=== PATIENT | female | born 1985 | race Hispanic/Latino ===

== ENCOUNTER 2016-09-01 07:58 | Inpatient (IN) | payer OTHER ==
[~2016-09-01] VITALS: Ht 160 cm; Wt 62.6 kg
[~2016-09-01 07:58] MED LIST: Docusate Sodium PO; FOL1 PO; Hydrocodone/Acetaminophen PO; Ibuprofen PO; PREN1CAP15 PO; VITA-212 PO
[2016-09-01] MEDS ORDERED: Lactated Ringer's 1,000 ML IV PRN (08:13)
[2016-09-01] MEDS ORDERED: Sodium Chloride LOK Flush 10 mL Syringe IVFLUSH PRN (08:15)
[2016-09-01] MEDS ORDERED: Oxytocin 30 Units/500 mL LR 30 UNITS in IV Premix 1 EACH IV PRN ×2 (08:15→11:25)
[2016-09-01] MEDS ORDERED: Carboprost 250 mCg/mL Inj IM PRN ×2 (08:15→11:25)
[2016-09-01] MEDS ORDERED: Ondansetron 2 mg/mL 2 mL Inj IVPUSH PRN ×2 (08:15→09:45)
[2016-09-01] MEDS ORDERED: fentaNYL-PF 50 mCg/mL 2 mL Inj IVPUSH PRN (08:15)
[2016-09-01] MEDS ORDERED: Oxytocin 10 Unit/mL Inj IM PRN ×2 (08:15→11:25)
[2016-09-01] MEDS ORDERED: Hemorrhage Kit, Post Partum XX ONE ×2 (08:15→11:25)
[2016-09-01] MEDS ORDERED: Methylergonovine 0.2 mg/mL Inj IM PRN ×2 (08:15→11:25)
--- NOTE | 2016-09-01 08:46 | PCM.HPOB ---
Subjective Date of Service: September 01, 2016 Referring Provider: Admitting Physician: Tamie Hwang MD Primary Care Physician: Nimisha Hylton MD Attending Physician: Tamie Hwang MD Chief Complaint Contractions History of Present History of Present Illness 31Y at 40w1d , KRUNAL 08/31/16 by first trimester US. presented with C/O contractions. On presentation cervix 4 cm/90%/intact. Last cervical exam at the office 10 days ago was 1 cm. No other complaint. good movements and no loss of fluid and no vaginal bleeding. Past Medical History Obstetrical History: 2000 M, 7lb 3oz 2001 F, 8 lb 2004 M, ~ 7 lb 2013 , M, ~7 lb Denies any intra or complications in previous delivery. 09/2011, 03/2012, 12/2012 SAB Hx of induced AB X1. Medical History: Denies any chronic disease. No H/O Asthma or HTN. Surgical History: None Hx Tobacco Use: No Hx Alcohol Use: No Hx Substance Use: No Past Family History Family History non contributory Review of Systems ROS 10 points ROS is negative except for items in HPI. Allergy Coded Allergies: No Known Allergies (Verified , 06/13/14) Exam Vital Signs Exam FHT 145 minimal-moderate variability, no decelerations no accelerations Contractions Q1-3 min Constitutional: Well-developed HEENT: Atraumatic Lungs: Clear to Auscultation Heart: Regular Rate/Rhythm, Normal S1, Normal S2 Abdomen: Gravid (EFW with brooklyn's maneuver 7 lb, cephalic presentaion by bedside US. ) Extremities: Pulses Palpable x4 Neurological/Psychiatric: Alert, Oriented X3 Additional Information made cervical change no w 6 cm by RN exam. Labs/Diagnostics Maternal Blood Type: O (positive ) Antibody Screen: negative Group B Strep Results: Negative Rubella: Immune (1.87) Additional Information HBsAg Negative PRP Non reactive HIV Non Reactive Pap smear negative 04/2014 Chlamydia Negative Gonorrhea Negative 1 Hour DM Screen 177 , 3 Hrs 1 abn (84, 201, 116, 86) OB Intrapartum Assessment/Plan Assessment 31 Y/O at 40w1d Glucose intolerance dose not meet criteria for GDM Active labor GBS negative Declined epidural initially now desires epidural. Plan: Admit Expectant management. High risk for hemorrhage and monitor for signs of Shoulder dystocia. Blanca Craig MD September 01, 2016 08:46
[2016-09-01 08:58] LABS: Mean Corpuscular Hemoglobin 22.4 pg (27.0-35.0); Mean Corpuscular Volume 72.5 fL (81-100)
[2016-09-01] MEDS ORDERED: Atropine 1 mg/10 mL (Code) Syringe IVPUSH PRN (09:45)
[2016-09-01] MEDS ORDERED: Lactated Ringer's 500 ML IV ONE (09:45)
[2016-09-01] MEDS ORDERED: EPHEDrine Sulfate 50 mg/mL Inj IVPUSH PRN (09:45)
[2016-09-01] MEDS: Lactated Ringer's 1,000 ML IV SCH ×2 (09:45→17:45)
[2016-09-01] MEDS ORDERED: fentaNYL 2 mCg/mL-Bupiv 0.125% 100 ML EPIDURAL SCH (09:45)
--- NOTE | 2016-09-01 09:46 | PCM.HPANE ---
Patient Data Surgeon Admitting Provider:Tamie Hwang MD Attending Provider:Tamie Hwang MD Primary Care Physician:Nimisha Hylton MD Other Provider:Blanca Craig MD Reason for Visit Term Labor Check TERM LABOR CHECK Ht/WT & BMI Body Mass Index Allergies Coded Allergies: No Known Allergies (Verified , 06/13/14) Past Anesthesia History Anesthesia History: Denies:: Abnormal Airway, Anesthesia Reactions, Difficult Intubation, Fam Anesthesia Reaction, Fam Malignant Hypertherm, Malignant Hyperthermia Diabetes History Hx Diabetes?: No Medications Active Scripts [Docusate Sodium] (Colace)100 MG CAPSULE No Conflict [id number] Mg PO DAILY PRN For Constipation #30 CAPSULE Ref 1 Prov:Zenobia Knox [facility] 10/30/13 [Hydrocodone/Acetaminophen] (Vicodin 5/325 mg)1 TAB TABLET No Conflict Check1-2 Tab PO Q4-6H PRN For Pain #10 TABLET Ref 1 Prov:Zenobia Knox [facility] 10/30/13 [Ibuprofen] (Motrin)800 MG TABLET No Conflict [id number] Mg PO Q6-8H PRN For Pain #30 TABLET Ref 1 Prov:Zenobia Knox [facility] 10/30/13 Reported Medications Vitamin B Complex (A-Capflgd-Svhlhxn B-12)1 Each Tablet1 Each PO 03/19/13 NO.25/IRON/FA #6/DHA-Expunged Drug, (PRENA1-Expunged Drug, Do Not Renew !)1 Each Capsule1 Each PO 03/19/13 Folic Acid-Expunged Drug, Do Not Renew! 1 Mg Tablet1 Mg PO DAILY 03/19/13 History History of ENT Problems?: No HEENT History: Denies:: Abnormal Airway Cataracts Difficult Intubation Dysphagia Glaucoma Hearing Problem Sinus Problem TMJ Denture Type: None Teeth Condition: Within Normal Limits Hx of Heart Problems?: No Cardiovascular History: Denies:: Congestive Heart Failure Hypertension Hx of Respiratory Problem?: No Respiratory History: Denies:: Tuberculosis Hx Neurologic Problems?: No Hx of GI Problems?: No Hx of Problems?: No HX of Peritoneal Dialysis: No Female Hx: Denies:: Currently Endometriosis Pelvic Inflammatory Problems with Breasts? Skin History: Denies:: History Skin Disorders? Pressure Ulcers Hx Musculoskeletal Problems?: No Musculoskeletal History: Denies:: Back Injury Degenerative Joint Fibromyalgia Joint Replacement Musculoskeletal Trauma Myasthenia Gravis Osteoarthritis Rheumatoid Arthritis Systemic Lupus Hx Surgeries?: No Hx Diabetes: No Hx Alcohol Use: NoHx Substance Use: No Smoking Status: Never Smoker Have You Smoked inLast 12 mo: No Stop/Bang Risk Assessment Category Category 1A: Patient has history of documented sleep apnea, and HAS NOT received any narcotic, sedative or anesthesia administration during this stay. Category 1B: Patient has history of documented sleep apnea, and HAS received any narcotic , sedative or anesthesia administration during this stay Category 2: Patient has SUSPECTED Obstructive Sleep Apnea, and HAS received any narcotic , sedative or anesthesia administration during this stay. Category 3: Patient has SUSPECTED Obstructive Sleep Apnea and HAS NOT received narcotic, sedative or anesthesia administration during this stay. Category 4: Outpatient in Procedural Areas with known sleep apnea or who screen positive for High Risk via the STOP/BANG questionnaire. Exam Exam General Appearance: Alert, Oriented X3, Moderate Distress HEENT/AIRWAY: MP 2, Neck Movement (from), Mouth Opening (wnl) Lungs: Normal Air Movement Meds/Labs/Diagnostics Labs Test 09/01/16 08:40 White Blood Count 10.1th/mm3 (3.8-10.1) Red Blood Count 4.33mil/mm3 (3.90-5.20) Hemoglobin 9.7g/dL (12.0-15.6) Hematocrit 31.4% (35.0-46.0) Mean Corpuscular Volume 72.5fL (81-100) Mean Corpuscular Hemoglobin 22.4pg (27.0-35.0) Mean Corpuscular Hemoglobin Concent 30.9% (32.0-37.0) Red Cell Distribution Width 17.5% (12.3-15.4) Platelet Count 362bil/L (150-400) Plan Impression Patient chart reviewed, patient interviewed and anesthestic plan with risks, benefits, and alternatives discussed, and informed consent obtained. ASA Physical Status: ASA2 Mod Systemic Disease Anesthetic Plan: Epidural Bene/Risks/Altern/Consents: Yes HP Complete Prior to Induction: Yes Uli Wells MD September 01, 2016 09:46
--- NOTE | 2016-09-01 10:25 | PCM.ANEP1 ---
Post Anesthesia Phase 1 PACU Phase 1 Assessment Date of Service: September 01, 2016 Anesthetic Administered: Epidural Level of Alertness: Awake, talking [place]'s with Equal Strength: No Pain: No Nausea or Vomiting: No Lungs: Normal Air Movement Dermatome Level: T10 (Umbilicus) Complications: No Follow up Care: No Uli Wells MD September 01, 2016 10:25
[2016-09-01] MEDS ORDERED: Lactated Ringer's 1,000 ML IV SCH (11:25)
[2016-09-01] MEDS ORDERED: Benzocaine (Dermoplast) 20% 60 Gm Spray TOPICAL PRN (11:25)
[2016-09-01] MEDS ORDERED: oxyCODONE-Acetamin 5-325 mg Tablet PO PRN (11:25)
[2016-09-01] MEDS ORDERED: Witch Hazel-Glycerin Pads TOPICAL PRN (11:25)
[2016-09-01] MEDS ORDERED: LANOlin HPA 7 Gm Ointment TOPICAL PRN (11:25)
--- NOTE | 2016-09-01 14:31 | OP ---
[address] [address] OPERATIVE REPORT PATIENT: HIPOLITO MONZON : 1985 MR#: [id number] ADMIT: 09/01/2016 JOB ID: [id number] DATE OF SURGERY: PREOPERATIVE DIAGNOSIS(ES): 1. Intrauterine at 40 weeks and 1 day. 2. Active labor. 3. Anemia. POSTOPERATIVE DIAGNOSIS(ES): 1. Intrauterine at 40 weeks and 1 day, Status post spontaneous vaginal delivery. 2. Active labor. 3. Anemia. PROCEDURE: Spontaneous vaginal delivery and repair of first-degree perineal laceration. SURGEON: Blanca Craig MD. ANESTHESIA: Epidural. ESTIMATED BLOOD LOSS: 300 mL. COMPLICATIONS: None. OUTCOME: Female infant delivered in occiput anterior position with no nuchal cord. Apgars 8 and 9 at one and five minutes respectively. Infant weight is pending. PROCEDURE: This is a 31-year-old, 9, now para 5-0-4-5, presented in active labor at 40 weeks and 1 day with expected date of delivery of July 01, 2016, dated by first trimester ultrasound. Contractions started around 6 a.m. this morning. The patient presented at 8 a.m. Cervix was 4 cm, 90% effaced, and head at -2. Then she progressed in labor to be completely dilated at 10:38 a.m. and artificial rupture of membrane was performed shortly before pushing at 10:46 a.m. and delivered at 11 a.m., September 01, 2016, female in cephalic presentation in occiput anterior position with no nuchal cord. Shoulders delivered without difficulty. Delivered under epidural anesthesia over an intact perineum. The was placed on the maternal abdomen. Delayed cord clamp was performed after 1-1/2 minutes. Cord blood was collected for gases. The data control clerk supervisor presented in the room secondary to light meconium-stained amniotic fluid. Apgars were 8 and 9 at one and five minutes respectively as was assigned by the data control clerk supervisor. Perineum was examined and first-degree laceration was noted. The placenta was delivered at 11:06 a.m., intact, with three-vessel cord. Fundal massage was performed; 800 mcg of Cytotec was placed rectally prophylactically for hemostasis and oxytocin was started IV prophylactically for hemorrhage. The perineal laceration was repaired with 4-0 Vicryl in the usual manner after local anesthesia with 1% lidocaine. The patient tolerated the procedure well and recovering in the delivery room with the infant. All instrument, needles and sponge counts were correct x2. I, Blanca Craig MD, was present and scrubbed for the entire procedure. ARABELLA
[2016-09-01] MEDS ORDERED: Ascorbic Acid 500 mg Tablet PO SCH (17:30)
[2016-09-02 07:00] LABS: Mean Corpuscular Hemoglobin 22.8 pg (27.0-35.0); Mean Corpuscular Volume 72.2 fL (81-100)
--- NOTE | 2016-09-02 07:50 | PCM.DIOB ---
Obstetrical Disch Instruction Date of Service: September 02, 2016 Dates of Hospitalization Date of Hospital Admission September 01, 2016 at 08:15 Providers Admitting Physician: Tamie Hwang MD Primary Care Physician: Nimisha Hylton MD Attending Physician: Tamie Hwang MD Discharge Diagnosis Discharge Diagnosis PPD1 Problems: Diet Discharge Diet: No restrictions Activity Discharge Activity-General: Pelvic Rest for 6 weeks, Try not to overdue, Be up and about, Balance rest and activity Dressing and Incisional Care Hygiene: May shower, NO bathtub, hot tub or whirlpool Additional Instructions Discharge Instructions Please call office if heavy vaginal bleeding, severe abdominal pain, foul smelling discharge, fever more than 100.4 or short of breath. Follow Up Plan Follow Up Plan 6 weeks post Follow-up appointment: Weeks (6) Call your provider for: Fever or Chills, Shortness of breath, Heavy vaginal bleeding, Vaginal discomfort, Red painful breasts Claritza Cox MD September 02, 2016 07:50
[2016-09-02] MEDS ORDERED: IBUP800T28 PO (07:53)
--- NOTE | 2016-09-02 10:10 | DIS ---
[address] [address] DISCHARGE SUMMARY PATIENT: HIPOLITO MONZON : 1985 MR#: [id number] ADMIT: 09/01/2016 JOB ID: [id number] DIS: 09/02/2016 HOSPITAL COURSE: This is a 37-year-old female, status post normal vaginal delivery, day one. Her delivery was not complicated. She recovered well after delivery. She is tolerating her diet well. Pain is well controlled by p.o. medications. Lochia is moderate to minimal. Voiding well. PHYSICAL EXAMINATION: She is afebrile. Her pulse and her blood pressure in normal range. Cardiac: RR. No murmur. Pulmonary: Bilaterally clear. Abdomen: Soft. Uterus is well contracted and nontender. Extremities: Nontender. Lochia moderate to minimal. ASSESSMENT AND PLAN: A 31-year-old female, day one after vaginal delivery. Plan to discharge her home. Motrin 600 mg q. 6-8 h. p.r.n. for pain, prescribed with 30 pills, no refills. The patient was instructed that if there is heavy vaginal bleeding, severe abdominal pain, foul-smelling discharge, fever more than 100.4, she needs to call the office or go to the ED for evaluation. She is instructed to make an appointment six weeks after delivery for followup.
== END 2016-09-02 15:11 | disposition home or self-care (01) | DRG 775 ==
LOC: FBCO 07:58 → FBC 08:15
PROVIDERS: ADMIT Obstetrics & Gynecology; ATTEND Obstetrics & Gynecology
PROC: 10E0XZZ Delivery of Products of Conception, External Approach (ICD-10-PCS; principal; 2016-09-01)
PROC: 0HQ9XZZ Repair Perineum Skin, External Approach (ICD-10-PCS; 2016-09-01)
PROC: 10907ZC Drainage of Amniotic Fluid, Therapeutic from Products of Conception, Via Natural or Artificial Opening (ICD-10-PCS; 2016-09-01)
DX: O70.0 First degree perineal laceration during delivery (principal); O77.0 Labor and delivery complicated by meconium in amniotic fluid; Z3A.40 40 weeks gestation of pregnancy; Z37.0 Single live birth